=== PATIENT | female | born 1965 | race Two or more races ===

== ENCOUNTER 2020-08-30 11:02 | Outpatient (REF) | payer BC, SELFPAY | END 2020-08-30 11:03 | disposition home or self-care (01) | LOC: HO.LAB 11:02 | PROVIDERS: Visit Provider Internal Medicine | DX: Z20.828 Contact with and (suspected) exposure to other viral communicable diseases (principal) | CPT/HCPCS: U0003 ==

== ENCOUNTER 2020-09-30 08:48 | Outpatient (REF) | payer BC, SELFPAY | END 2020-09-30 08:49 | disposition home or self-care (01) | LOC: HO.LAB 08:48 | PROVIDERS: Visit Provider Internal Medicine | DX: Z20.828 Contact with and (suspected) exposure to other viral communicable diseases (principal) | CPT/HCPCS: C9803; U0003 ==

== ENCOUNTER 2020-10-07 08:03 | Outpatient (REF) | payer BC, SELFPAY ==
[2020-10-07 08:40] LABS: MANUAL DIFF FLAG NO
[2020-10-07 08:48] LABS: Eosinophils Absolute Auto 0.1 X10*3/uL (0.0-0.4); Eosinophils Percent Auto 1.3 % (0-4); Hematocrit 40.6 % (37-47); Hemoglobin 13.4 g/dl (12.0-16.0); Imm Gran Abs Auto 0.01 X10*3/uL (0.00-0.03); Imm Gran Pct Auto 0.2 % (0.0-0.4); Lymphocytes Absolute Auto 1.6 X10*3/uL (1.2-4.9); Lymphocytes Percent Auto 30.7 % (20-40); Mean Corpuscular Hemoglobin 28.3 pg (27.0-33.0); Mean Corpuscular Volume 85.7 fL (80-98); Mean Platelet Volume 10.7 fL (9.4-12.3); Monocytes Absolute Auto 0.3 X10*3/uL (0.1-1.2); Monocytes Percent Auto 5.3 % (2-11); Neutrophils Absolute Auto 3.3 X10*3/uL (2.0-8.3); Neutrophils Percent Auto 62.5 % (45-73); Platelet Count 248 X10*3/uL (160-400); Red Blood Count 4.74 X10*6/uL (4.20-5.50); Red Cell Distribution Width 12.4 % (11.0-16.0); White Blood Count 5.3 X10*3/uL (4.8-10.8)
[2020-10-07 09:08] LABS: Anion Gap 14 (12-20); Blood Urea Nitrogen 17 mg/dL (9-16); Carbon Dioxide 25 mmol/L (22-29); Chloride 106 mmol/L (96-108); Cholesterol 156 mg/dL; Estimated Glomerular Filt Rate > 60; Glucose Fasting 88 mg/dL (60-99); HDL Cholesterol 40 mg/dL; LDL Cholesterol Calculated 99 mg/dl; Sodium 140 mmol/L (135-145); Triglycerides 88 mg/dL
== END 2020-10-07 08:04 | disposition home or self-care (01) ==
LOC: HO.LAB 08:03
PROVIDERS: PCP Internal Medicine; Visit Provider Nurse Practitioner Family
DX: Z00.00 Encounter for general adult medical examination without abnormal findings (principal); Z13.220 Encounter for screening for lipoid disorders
CPT/HCPCS: 36415; 80048; 80061; 85025

== ENCOUNTER 2020-11-19 10:14 | Outpatient (REF) | payer BC, SELFPAY | END 2020-11-19 10:15 | disposition home or self-care (01) | LOC: HO.LAB 10:14 | PROVIDERS: Visit Provider Internal Medicine | DX: Z20.822 Contact with and (suspected) exposure to COVID-19 (principal) | CPT/HCPCS: 36415; C9803; U0003 ==

== ENCOUNTER 2021-01-29 08:42 | Outpatient (REF) | payer BC, SELFPAY ==
[2021-01-29 12:29] LABS: SARS COV2 PCR INHOUSE NEGATIVE (Negative)
== END 2021-01-29 08:43 | disposition home or self-care (01) ==
LOC: HO.LAB 08:42
PROVIDERS: Visit Provider Internal Medicine
DX: Z20.822 Contact with and (suspected) exposure to COVID-19 (principal)
CPT/HCPCS: C9803; U0003

== ENCOUNTER 2022-08-20 15:06 | Outpatient (REF) | payer OTHER, SELFPAY ==
[2022-08-20 15:56] LABS: Appearance Urine Clear; Color Urine Yellow; Glucose Urine UA Negative (Negative); Leukocyte Esterase Urine Trace (Negative); Nitrite Urine Negative (Negative); Specific Gravity - Urine 1.015 (1.005-1.025); UMIC TRIGGER UA YES; Urine Blood Large (3+) (Negative); Urine Ketones Negative (Negative); Urine Protein Negative (Neg-Trace)
[2022-08-20 15:59] LABS: Bacteria Urine None Seen (None Seen); Hyaline Casts Urine 0-2 /LPF (0-2); RBC Urine >20 /HPF (0-2); Squamous Epithelial Cell Urine 0-2 /HPF (0-2); WBC Urine 0-5 /HPF (0-5)
[2022-08-20 15:59] LABS: Anion Gap 14 (12-20); Blood Urea Nitrogen 20 mg/dL (9-16); Calcium 9.7 mg/dL (8.4-10.2); Carbon Dioxide 26 mmol/L (22-29); Chloride 105 mmol/L (96-108); Estimated Glomerular Filt Rate > 60; Potassium 4.1 mmol/L (3.3-5.1); Sodium 141 mmol/L (135-145)
== END 2022-08-20 15:07 | disposition home or self-care (01) ==
LOC: HO.LAB 15:06
PROVIDERS: Visit Provider Internal Medicine Nephrology
DX: I15.8 Other secondary hypertension (principal); R31.9 Hematuria, unspecified
CPT/HCPCS: 36415; 80051; 81001; 82310; 82565; 84520

== ENCOUNTER 2022-11-17 00:15 | Emergency (ER) | payer OTHER, SELFPAY ==
[2022-11-17] VITALS (8 sets, daily range): BP systolic 114–148; BP diastolic 80–90; PULSE 99–119; RESP 12–20; TEMP 36.6; O2SAT 96–100; BMI 27.6
--- NOTE | ~2022-11-17 | XR_ITS ---
EXAMINATION: XR CHEST CLINICAL INFORMATION: Syncope COMPARISON: None TECHNIQUE: Frontal view of the chest was obtained. FINDINGS: The lungs are well expanded. There is no focal consolidation, edema, or effusion. No pneumothorax. The cardiomediastinal silhouette is within normal limits. No acute osseous abnormality. XR/XR chest 1V IMPRESSION: No acute pulmonary disease.
--- NOTE | ~2022-11-17 | XR_ITS ---
EXAMINATION: XR ANKLE, RIGHT CLINICAL INFORMATION: Syncope. Twisted ankle. Swelling. COMPARISON: None TECHNIQUE: AP, lateral, and mortise views of the right ankle. FINDINGS: Obliquely oriented distal fibular fracture extending to the ankle mortise. Slight lateral displacement of the distal fragment. Medial widening of the ankle mortise. Small fracture at the tip of the medial malleolus. Lateral soft tissue swelling. XR/XR ankle RT min 3V IMPRESSION: Mildly displaced distal fibular fracture. Small fracture at the tip of the medial malleolus. Widening of the medial clear space of the ankle mortise.
--- NOTE | ~2022-11-17 | CT_ITS ---
EXAMINATION: CT ANGIOGRAM OF THE CHEST WITH AND WITHOUT CONTRAST (CT PULMONARY ANGIOGRAM FOR PE) CLINICAL INFORMATION: Reason for Exam covid+, syncope, elevated dimer COMPARISON: Chest radiograph from today TECHNIQUE: Prior to contrast administration, noncontrast localization images were obtained. Subsequently, multidetector volumetric imaging was performed from the thoracic inlet to below the diaphragms following the administration of 65 mL Omnipaque 350 intravenous contrast. No contrast reaction reported Sagittal, coronal, and MIP oblique sagittal reformatted images were obtained on the CT workstation, uploaded to PACS, and reviewed. This CT examination was performed using dose optimization techniques as appropriate, variously including the following: *Automated exposure control *Adjustment of mA and/or kV according to patient size (this includes techniques or standardized protocols for targeted exams where dose is matched to indication/reason for exam; i.e. extremities or head) *Use of iterative reconstruction technique Total exam dose-length product 246 mGy-cm FINDINGS: QUALITY OF STUDY/CONTRAST BOLUS: Satisfactory. PULMONARY ARTERIES: No central or segmental pulmonary emboli. THORACIC AORTA: No aneurysm or dissection. LUNG: No focal consolidation, nodules or masses. The central airways are patent. PLEURA: No pleural effusion or pneumothorax. MEDIASTINUM: Normal heart size. No pericardial effusion. No hilar or mediastinal lymphadenopathy. No evidence of septal bowing or right heart strain. CORONARY ARTERY CALCIFICATION: None visualized on this study. CHEST WALL/AXILLA: No axillary or internal mammary lymphadenopathy. OSSEOUS STRUCTURES: No acute or suspicious osseous abnormality. Degenerative changes noted in the spine. UPPER ABDOMEN: Unremarkable. No reflux of contrast into the hepatic veins to suggest elevated right heart pressures. CT/CT angio chest PE protocol IMPRESSION: No pulmonary embolism or other acute intrathoracic abnormality. VTE: negative
--- NOTE | 2022-11-17 00:25 | ECG_ITS ---
Test Reason : SNYCOPE Blood Pressure : / mmHG Vent. Rate : 085 BPM Atrial Rate : 085 BPM P-R Int : 148 ms QRS Dur : 086 ms QT Int : 378 ms P-R-T Axes : 038 -15 -06 degrees QTc Int : 449 ms Normal sinus rhythm Moderate voltage criteria for LVH, may be normal variant ( R in aVL , Boom product ) Borderline ECG No previous ECGs available Referred By: Generic ED Physician Electronically Signed By:ABBEY ZEE MD
[2022-11-17 01:22] LABS: Anion Gap 15 (12-20); Blood Urea Nitrogen 18 mg/dL (9-16); Calcium 8.8 mg/dL (8.4-10.2); Carbon Dioxide 24 mmol/L (22-29); Chloride 105 mmol/L (96-108); Creatinine Clr Calc Pharmacy 65.9; Estimated Glomerular Filt Rate > 60; Glucose Random 113 mg/dL (60-115); Potassium 4.1 mmol/L (3.3-5.1); Sodium 140 mmol/L (135-145)
[2022-11-17 01:30] LABS: Troponin-I High Sensitivity < 3.5 ng/L (<3.5-17.0)
[2022-11-17 01:33] LABS: Basophils Percent Auto 0.3 % (0-2); Eosinophils Percent Auto 0.6 % (0-4); Hemoglobin 13.1 g/dl (12.0-16.0); Imm Gran Abs Auto 0.02 X10*3/uL (0.00-0.03); Imm Gran Pct Auto 0.3 % (0.0-0.4); Lymphocytes Absolute Auto 1.3 X10*3/uL (1.2-4.9); Lymphocytes Percent Auto 18.2 % (20-40); Mean Corpuscular HGB Conc 34.5 g/dl (31.0-35.0); Mean Corpuscular Hemoglobin 28.8 pg (27.0-33.0); Mean Corpuscular Volume 83.5 fL (80.0-98.0); Mean Platelet Volume 9.9 fL (9.4-12.3); Monocytes Absolute Auto 0.5 X10*3/uL (0.1-1.2); Monocytes Percent Auto 7.1 % (2-11); Neutrophils Percent Auto 73.5 % (45-73); Platelet Count 209 X10*3/uL (160-400); Red Blood Count 4.55 X10*6/uL (4.20-5.50); Red Cell Distribution Width 12.3 % (11.0-16.0); White Blood Count 6.9 X10*3/uL (4.8-10.8)
[2022-11-17 01:36] LABS: MANUAL DIFF FLAG NO
[2022-11-17 01:42] LABS: Influenza A PCR NEGATIVE (Negative); Influenza B PCR NEGATIVE (Negative); Resp Syncy Virus RNA Qual PCR NEGATIVE (Negative); SARS COV2 PCR INHOUSE POSITIVE (Negative)
--- NOTE | 2022-11-17 02:04 | ED_ITS ---
HPI - General Adult General Chief complaint: Syncope Stated complaint: ankle injury, fall at home Time Seen by Provider: 11/17/22 01:43 Source: patient Mode of arrival: ambulatory Limitations: no limitations History of Present Illness HPI narrative: Patient comes to the emergency room complaining dizziness, syncopal episode and ankle injury. Patient states that she was already sleeping, patient heard her child coughing violently, she got worked up, anxious, stood up from bed very quickly to look for medications. Patient started feeling very lightheaded, patient passed out. When she woke up on the floor, patient had ankle pain. Patient states that she has been coughing quite a bit lately in the last couple of days. Related Data Previous Rx's Medication Instructions Recorded ibuprofen 600 mg tablet 600 mg PO TID PRN fever or pain 11/17/22 #20 tabs nirmatrelvir 300 mg (150 mg See Rx Instructions PO .COMPLEX 11/17/22 x2)-ritonavir 100 mg tablet,dose #30 ea pack(EUA) (Paxlovid) tramadol 50 mg tablet 50 mg PO Q8H PRN pain #7 tabs 11/17/22 Allergies Allergy/AdvReac Type Severity Reaction Status Date / Time No Known Allergies Allergy Verified 09/25/20 07:34 [No Known Allergies*] Review of Systems Review of Systems: Constitutional : No Weight loss, No Fever, No Chills, No Night Sweats, No Fatigue, No Malaise ENT/Mouth : No Hearing loss, No Ear Pain, No Nasal Congestion, No Sinus Pain, No Hoarseness, No sore throat, No Rhinorrhea, No Swallowing Difficulty Eyes: No Eye Pain, No Swelling, No Redness, No Foreign Body, No Discharge, No Vision Changes Cardiovascular : No Chest Pain, No SOB, No Dyspnea on Exertion, No Orthopnea, No Edema, No Palpitations Respiratory : No Cough, No Sputum, No Wheezing, No Smoke Exposure, No Dyspnea Gastrointestinal : No Nausea, No Vomiting, No Diarrhea, No Constipation, No abdominal Pain, No Hematochezia, No Melena Genitourinary : no irregular bleeding, No Dysuria, No Urinary Frequency, No Hematuria, No Urinary Incontinence, No Urgency, No Flank Pain, No Urinary Flow Changes, No Hesitancy Musculoskeletal : Complaining of right ankle pain, No Myalgias, No Joint Swelling Skin : No Skin Lesions, No rash Neuro : No Weakness, No Numbness, No Paresthesias, 1 episode of dizziness /lightheadedness, No Dizziness, No Headache Psych : Anxiety, depression SI or HI Heme/Lymph: No Bruising, No Bleeding,No Lymphadenopathy Endocrine : No Polyuria, No Polydipsia, No Temperature Intolerance [facility] Past Medical History Medical History Physical exam Surgical History History of section Family History Family History (Updated 09/25/20 @ 07:35 by Lucille Ruvalcaba [facility]) Father Lung cancer Diabetes Hypertension Mother Hypertension Social History Social History Alcohol intake: never Smoked in Last 30 Days: No Use of substances other than those prescribed or required for medical reasons: No Advance Directives: No Patient : No Physical Exam ED Vital Signs: Vital Signs - 24 hr 11/17/22 00:19 11/17/22 02:05 11/17/22 02:03 Temperature 97.8 F 97.9 F Pulse Rate 99 103 H 102 H Respiratory Rate 20 12 Blood Pressure 114/81 143/85 H 148/80 H Pulse Oximetry 100 96 Oxygen Delivery Method Room Air Room Air 11/17/22 02:08 11/17/22 02:19 11/17/22 02:03 Temperature Pulse Rate 102 H 118 H Respiratory Rate Blood Pressure 148/88 H 122/85 Pulse Oximetry 99 Oxygen Delivery Method Room Air 11/17/22 04:52 11/17/22 04:58 11/17/22 04:59 Temperature 97.9 F Pulse Rate 102 H 105 H 119 H Respiratory Rate 16 Blood Pressure 143/90 H 146/88 H 139/88 Pulse Oximetry 96 Oxygen Delivery Method Room Air BMI result Body Mass Index 27.6 Const Other: Appearance: Alert. Oriented X3. No acute distress. Eyes: Pupils equal, round and reactive to light. ENT: Pharynx normal. Neck: Normal inspection. Neck supple. No lymph nodes noted. No crepitus CVS: Normal heart rate and rhythm. Pulses normal. Normal S1 and S2 Respiratory: No respiratory distress. Breath sounds normal. No Wheezing. No rales Abdomen: Soft and nontender. No rigidity. No distention. Skin: Skin warm and dry. Normal skin color. Normal skin turgor. Extremities: Patient's ankle on the right side is swelling, tenderness to palpation over the lateral malleolus Neuro: Oriented X 3. No motor deficit. No sensory deficit. Moving all extremities. No slurred speech. CN 2 through 12 grossly intact Psych: calm, cooperative, normal affect Course Course Course Narrative: -patient tested positive for COVID-19. -patient passed out from sitting up quickly, being anxious. Is likely that patient passed out from vasovagal syncope. Patient's orthostatic vitals are positive, patient receiving IV fluids. However, patient does have COVID I will go ahead and order a D-dimer -troponin negative, D-dimer pending. Discussed with patient that the timer is positive, she will get a CTA, agrees with plan -patient will get short posterior splint with stirrup and crutches -D-dimer positive. We will go ahead and do a CTA to rule out pulmonary embolism -CTA is negative for pulmonary embolism. -patient's orthostatic vitals were positive, patient given IV fluids, orthostatics were checked, no longer positive. Medications Administered Discontinued Medications Generic Name Dose Route Start Last Admin Trade Name Freq PRN Reason Stop Dose Admin Sodium Chloride 1,000 mls @ 999 mls/hr 11/17/22 02:20 11/17/22 02:51 Ns IVCONT 11/17/22 03:20 999 mls/hr .Q1H1M ONE Administration Medical Decision Making Medical Decision Making [facility] Narrative: Patient's troponin was slightly elevated at 261, CTA was negative for pulmonary embolism. Troponin negative, EKG shows normal sinus rhythm, no ST segment depression or elevation, no T-wave inversion, QTC 449 Differential Diagnosis Differential Diagnoses: The differential diagnosis associated with the presentation includes (Pulmonary embolism, ACS, orthostatic hypotension, vasovagal syncope) Lab Data [facility] Lab Attestation statement: I reviewed the patient's lab results. 11/17/22 01:22 11/17/22 00:59 Labs: Lab Results 11/17/22 11/17/22 11/17/22 Range/Units 00:59 00:59 00:59 WBC (4.8-10.8) X10*3/uL RBC (4.20-5.50) X10*6/uL Hgb (12.0-16.0) g/dl Hct (37.0-47.0) % MCV (80.0-98.0) fL MCH (27.0-33.0) pg MCHC (31.0-35.0) g/dl RDW (11.0-16.0) % Plt Count (160-400) X10*3/uL MPV (9.4-12.3) fL Immature Gran % (Auto) (0.0-0.4) % Neut % (Auto) (45-73) % Lymph % (Auto) (20-40) % Pierce % (Auto) (2-11) % Eos % (Auto) (0-4) % Baso % (Auto) (0-2) % Lymph # (Auto) (1.2-4.9) X10*3/uL Pierce # (Auto) (0.1-1.2) X10*3/uL Eos # (Auto) (0.0-0.4) X10*3/uL Baso # (Auto) (0.0-0.2) X10*3/uL Abs Immat Gran (auto) (0.00-0.03) X10*3/uL Absolute Neuts (auto) (2.0-8.3) x10*3/uL Absolute Nucleated RBC (0.0-0.012) X10*3/uL Nucleated RBC % (auto) (0.0-0.2) /100WBC D-Dimer High Sensitivty NG/ML Sodium 140 (135-145) mmol/L Potassium 4.1 (3.3-5.1) mmol/L Chloride 105 (96-108) mmol/L Carbon Dioxide 24 (22-29) mmol/L Anion Gap 15 (12-20) BUN 18 H (9-16) mg/dL Creatinine 0.82 (0.5-1.4) mg/dL Estim Creat Clear Calc 65.9 Estimated GFR > 60 Random Glucose 113 (60-115) mg/dL Calcium 8.8 D (8.4-10.2) mg/dL Troponin I High Sens < 3.5 (<3.5-17.0) ng/L Urine Color Urine Appearance Urine pH (5.0-9.0) Ur Specific [place] (1.005-1.025) Urine Protein (Neg-Trace) mg/dL Urine Glucose (UA) (Negative) mg/dL Urine Ketones (Negative) mg/dL Urine Blood (Negative) Urine Nitrite (Negative) Ur Leukocyte Esterase (Negative) Urine RBC (0-2) /HPF Urine WBC (0-5) /HPF Ur Squamous Epith Cells (0-2) /HPF Urine Bacteria (None Seen) Hyaline Casts (0-2) /LPF Influenza Type A (PCR) NEGATIVE (Negative) Influenza Type B (PCR) NEGATIVE (Negative) RSV RNA Qual (PCR) NEGATIVE (Negative) SARS-CoV-2 RNA (RT-PCR) POSITIVE A (Negative) 11/17/22 11/17/22 11/17/22 Range/Units 01:22 01:59 04:47 WBC 6.9 (4.8-10.8) X10*3/uL RBC 4.55 (4.20-5.50) X10*6/uL Hgb 13.1 (12.0-16.0) g/dl Hct 38.0 (37.0-47.0) % MCV 83.5 (80.0-98.0) fL MCH 28.8 (27.0-33.0) pg MCHC 34.5 (31.0-35.0) g/dl RDW 12.3 (11.0-16.0) % Plt Count 209 (160-400) X10*3/uL MPV 9.9 (9.4-12.3) fL Immature Gran % (Auto) 0.3 (0.0-0.4) % Neut % (Auto) 73.5 H (45-73) % Lymph % (Auto) 18.2 L (20-40) % Pierce % (Auto) 7.1 (2-11) % Eos % (Auto) 0.6 (0-4) % Baso % (Auto) 0.3 (0-2) % Lymph # (Auto) 1.3 (1.2-4.9) X10*3/uL Pierce # (Auto) 0.5 (0.1-1.2) X10*3/uL Eos # (Auto) 0.0 (0.0-0.4) X10*3/uL Baso # (Auto) 0.0 (0.0-0.2) X10*3/uL Abs Immat Gran (auto) 0.02 (0.00-0.03) X10*3/uL Absolute Neuts (auto) 5.0 (2.0-8.3) x10*3/uL Absolute Nucleated RBC 0.000 (0.0-0.012) X10*3/uL Nucleated RBC % (auto) 0.0 (0.0-0.2) /100WBC D-Dimer High Sensitivty 261 NG/ML Sodium (135-145) mmol/L Potassium (3.3-5.1) mmol/L Chloride (96-108) mmol/L Carbon Dioxide (22-29) mmol/L Anion Gap (12-20) BUN (9-16) mg/dL Creatinine (0.5-1.4) mg/dL Estim Creat Clear Calc Estimated GFR Random Glucose (60-115) mg/dL Calcium (8.4-10.2) mg/dL Troponin I High Sens (<3.5-17.0) ng/L Urine Color Yellow Urine Appearance Clear Urine pH 7.0 (5.0-9.0) Ur Specific [place] 1.025 (1.005-1.025) Urine Protein Negative (Neg-Trace) mg/dL Urine Glucose (UA) Negative (Negative) mg/dL Urine Ketones Negative (Negative) mg/dL Urine Blood Moderate (2+) H (Negative) Urine Nitrite Negative (Negative) Ur Leukocyte Esterase Trace H (Negative) Urine RBC 11-20 H (0-2) /HPF Urine WBC 0-5 (0-5) /HPF Ur Squamous Epith Cells 0-2 (0-2) /HPF Urine Bacteria None Seen (None Seen) Hyaline Casts 0-2 (0-2) /LPF Influenza Type A (PCR) (Negative) Influenza Type B (PCR) (Negative) RSV RNA Qual (PCR) (Negative) SARS-CoV-2 RNA (RT-PCR) (Negative) Independent Interpretation I performed an independent interpretation of an: Plain X-Ray (X-ray of the ankle interpretation: Tibial fracture, mildly displaced) and CT Scan (Interpretation of CTA, no occlusions, no PE visualized) Radiology Impression Discussion of test interpretation with radiology: I have reviewed the radiologist's reading. Radiologist Impression: FINDINGS: QUALITY OF STUDY/CONTRAST BOLUS: Satisfactory. PULMONARY ARTERIES: No central or segmental pulmonary emboli.? THORACIC AORTA: No aneurysm or dissection. LUNG: No focal consolidation, nodules or masses. The central airways are patent. PLEURA: No pleural effusion or pneumothorax. MEDIASTINUM: Normal heart size.? No pericardial effusion.? No hilar or mediastinal lymphadenopathy.? No evidence of septal bowing or right heart strain. CORONARY ARTERY CALCIFICATION: None visualized on this study. CHEST WALL/AXILLA: No axillary or internal mammary lymphadenopathy. OSSEOUS STRUCTURES: No acute or suspicious osseous abnormality. Degenerative changes noted in the spine. UPPER ABDOMEN: Unremarkable.? No reflux of contrast into the hepatic veins to suggest elevated right heart pressures. CT/CT angio chest PE protocol IMPRESSION: No pulmonary embolism or other acute intrathoracic abnormality. ? VTE: negative Mildly displaced distal fibular fracture. Small fracture at the tip of the medial malleolus. Widening of the medial clear space of the ankle mortise. ? Discharge Plan Discharge Clinical Impression: Syncope, COVID-19, Closed fibular fracture, Syncope due to orthostatic hypote nsion Patient Disposition: Home, Self-Care Instructions: Ankle Fracture (ED), Syncope (ED), COVID-19 (Coronavirus Disease 2019) (ED) Additional Instructions: Please follow-up with your primary care physician and Orthopedics tomorrow. If you have any worsening or new symptoms, please return to the emergency room or call 911 Prescriptions: New Paxlovid (EUA) 300 mg (150 mg x 2)-100 mg tablets,dose pack See Rx Instructions .ROUTE .COMPLEX Qty: 30 0RF Rx Instructions: take TWO 150 mg tablets of nirmatrelvir with ONE 100 mg tablet of ritonavir twice daily for 5 days tramadol 50 mg tablet 50 mg PO Q8H PRN (Reason: pain) Qty: 7 0RF ibuprofen 600 mg tablet 600 mg PO TID PRN (Reason: fever or pain) Qty: 20 0RF Referrals: Edelmira Singh PA-C [Physician Yarn Mercerizer Operator] - 2 days Stand Alone Forms: Work/School Release
[2022-11-17 02:14] LABS: D Dimer High Sensitivity 261 NG/ML
[2022-11-17] MEDS: 0.9 % Sodium Chloride 1,000 ML 999 ML IVCONT (02:51)
[2022-11-17 04:56] LABS: Appearance Urine Clear; Color Urine Yellow; Glucose Urine UA Negative (Negative); Leukocyte Esterase Urine Trace (Negative); Nitrite Urine Negative (Negative); Specific Gravity - Urine 1.025 (1.005-1.025); UMIC TRIGGER UACC YES; Urine Blood Moderate (2+) (Negative); Urine Ketones Negative (Negative); Urine Protein Negative (Neg-Trace)
[2022-11-17 05:00] LABS: Bacteria Urine None Seen (None Seen); Hyaline Casts Urine 0-2 /LPF (0-2); Squamous Epithelial Cell Urine 0-2 /HPF (0-2); WBC Urine 0-5 /HPF (0-5)
--- NOTE | 2022-11-17 05:01 | PC.NURSE ---
PT pivot to bedside commode. Urine sample obtained and sent to lab. Orthostatic vitals obtained and documented as ordered, provider notified.
== END 2022-11-17 05:29 | disposition home or self-care (01) ==
PROVIDERS: Emergency Provider Emergency Medicine; PCP Internal Medicine
DX: S82.401A Unspecified fracture of shaft of right fibula, initial encounter for closed fracture (principal); U07.1 COVID-19; R55 Syncope and collapse; R07.81 Pleurodynia; W01.0XXA Fall on same level from slipping, tripping and stumbling without subsequent striking against object, initial encounter; Y93.9 Activity, unspecified; Y92.9 Unspecified place or not applicable; Y99.9 Unspecified external cause status; Z79.899 Other long term (current) drug therapy
CPT/HCPCS: 0241U; 29515; 36415; 71045; 71275; 73610; 80048; 81001; 84484; 85025; 85379; 93005; 99285

== ENCOUNTER 2022-11-26 06:06 | Outpatient (REF) | payer OTHER, SELFPAY ==
--- NOTE | ~2022-11-26 | XR_ITS ---
EXAMINATION: XR ankle RT min 3V CLINICAL INFORMATION: Reason for Exam M25.571 - Pain in right ankle and joints of right foot COMPARISON: Ankle radiographs 11/17/2022 TECHNIQUE: AP, lateral, and oblique views of the ankle FINDINGS: * Redemonstration of a mildly displaced distal fibular fracture and a displaced fracture of the tip of the medial malleolus, with increasing widening of the medial clear space to 0.9 cm suggesting ligamentous injury, previously 0.5 cm. No keerthi bridging bony callus formation. * Small tibiotalar joint effusion. * Persistent soft tissue swelling, decreased from prior.
== END 2022-11-26 06:07 | disposition home or self-care (01) ==
LOC: HO.HOSX 06:06
PROVIDERS: Visit Provider Physician Assistant
DX: S82.831A Other fracture of upper and lower end of right fibula, initial encounter for closed fracture (principal)
CPT/HCPCS: 73610

== ENCOUNTER 2022-12-02 08:18 | Day surgery (SDC) | payer OTHER, SELFPAY ==
[2022-12-02] VITALS (12 sets, daily range): BP systolic 136–170; BP diastolic 73–93; PULSE 68–92; RESP 14–18; TEMP 36.7–37.1; O2SAT 99–100; BMI 28.9
--- NOTE | ~2022-12-02 | FL_ITS ---
EXAMINATION: XR FLUOROSCOPY WITH IMAGES CLINICAL INFORMATION: Fracture right ankle. COMPARISON: None. TECHNIQUE: Fluoroscopy Supervised By: Dr. Brandon Ellison. Fluoroscopy Time: 0.2 minutes. Cumulative Dose: 0.802 mGy. DAP: 0.0139 Gycm2. Images: 3. FINDINGS: 3 digital views of the right ankle reveal and lateral metallic plate and screws stabilizing old healed fracture. The long screw stabilizing the tibia and fibula has been removed. The ankle mortise is satisfactory alignment. No abnormal soft tissue swelling seen. FL/FL guidance in OR IMPRESSION: 1. Status post removal of long screw stabilizing the tibia and fibula. 2. There is lateral metallic plate and screws stabilizing old healed fracture. Stabilized lateral fibular fracture with metallic plate and screws. A long screw traversing the distal tibia and fibula has been removed. There is medial distal tibial metallic plate noted.
[2022-12-02] MEDS: Lactated Ringers 1,000 ML 50 ML IVCONT (08:54)
--- NOTE | 2022-12-02 08:58 | HO.ANESPROP2 ---
HPI - Anesthesia Eval Consult details Narrative: 56 F for right ankle ORIF PMFSH Active Problems Active Problems: All Active Problems (Updated 12/02/22 @ 08:30 by Marla Ruggiero, RN) COVID-19 (Acute) Fracture of distal end of right fibula (Acute) Physical exam (Acute) Past Medical History Medical History Kidney disease Physical exam Family History Family History (Updated 09/25/20 @ 07:35 by Lucille Ruvalcaba [facility]) Father Lung cancer Diabetes Hypertension Mother Hypertension Family history of problems with anesthesia: No Surgical History Surgical History (Updated 12/02/22 @ 08:31 by Marla Ruggiero, KAMINI) History of section Hx of colonoscopy History of Problems with Anesthesia: No Social History Social History (Updated 11/26/22 @ 10:37 by Phoebe Mao [facility]) Alcohol intake: never Patient Tobacco Use Status: Never used Tobacco Use of substances other than those prescribed or required for medical reasons: No Are you DNR?: No Advance Directives: No Advance Directives Information Provided: Yes Current occupational status: employed 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, 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 Meds Allergies Allergy/AdvReac Type Severity Reaction Status Date / Time No Known Allergies Allergy Verified 12/02/22 08:31 [No Known Allergies*] Active Medications: Current Medications Lactated Ringer's (Lr) 1,000 mls @ 50 mls/hr IVCONT .Q20H GAVIN Last Admin: 12/02/22 08:54 Dose: 50 mls/hr Exam Exam Date and Time: December 02, 2022 0858 Height,Weight and Vital Signs: Height 5 ft 1 in Weight 69.4 kg Last Vital Signs Temp 98.7 F 12/02/22 08:38 Pulse 92 12/02/22 08:38 Resp 15 12/02/22 08:38 BP 147/89 H 12/02/22 08:38 Pulse Ox 99 12/02/22 08:38 O2 Del Method 12/02/22 08:38 Airway Mallampati Class: III TM Dist: >3cm Neck ROM: Full Loose/Missing/Broken Teeth: Yes Heart: S1,S2 Lungs: b/l breath sounds Assessment and Plan Assessment Anesthesia Assessment: Anesthesia Plan Discussed and Chart Reviewed Final Anesthetic Review Family History of Problems with Anesthesia: No History of Problems with Anesthesia: No NPO: Yes ASA Class: II Final Preanesthetic Review: Meds/Allgs Chart Reviewed, Consent Obtained/Reviewed and Anes Risks/Benef Reviewed Patient Risk: Intermediate Procedure Risk: Intermediate Anesthetic Plan Anesthetic Plan: GA and Regional Block Disposition: Standard PACU
--- NOTE | 2022-12-02 12:54 | P.BOP_ITS ---
Brief Operative Note Date of Service: 12/02/22 Pre-op diagnosis: Right fibula fracture with syndesmosis disruption Post-op diagnosis: same Procedure: ORIF right fibula ORIF right syndesmosis Implants: Styker lateral locking plate Arthrex syndesmosis tightrope Surgeon: Brandon Ellison MD Anesthesia: GETA and regional Was an Professor Of Theater used for this Procedure?: Yes Professor Of Theater: Edelmira Singh Estimated blood loss (mL): 5 Tourniquet time (min): 35 IV fluids (mL): 800 Pathology: none sent Condition: stable Disposition: PACU
[2022-12-02] MEDS: fentaNYL citrate/PF 100 MCG/2 ML VIAL 25 MCG IVPUSH ×2 (13:30→13:40)
[2022-12-02] MEDS: oxyCODONE HCl Immed Release 5 MG TABLET PO (13:55)
[2022-12-02] MEDS: Acetaminophen 325 MG TABLET 650 MG PO (13:56)
--- NOTE | 2022-12-02 15:53 | PC.NURSE ---
PATIENT ARRIVED WITH HER OWN CRUTCHES.
--- NOTE | 2022-12-07 11:37 | P.OP_ITS ---
Operative Note Operative Note Date of Service: 12/02/22 Narrative: Date of Service: 12/02/22 Pre-op diagnosis: Right fibula fracture with syndesmosis disruption Post-op diagnosis: same Procedure: ORIF right fibula ORIF right syndesmosis Implants: Styker lateral locking plate Arthrex syndesmosis tightrope Surgeon: Brandon Ellison MD Anesthesia: GETA and regional Was an Wood Fence Installer used for this Procedure?: Yes Wood Fence Installer: Edelmira Singh Estimated blood loss (mL): 5 Tourniquet time (min): 35 IV fluids (mL): 800 Pathology: none sent Condition: stable Disposition: PACU Procedure in detail: Patient was brought to the operating room and placed supine on the operative table. All bony prominences were well padded and a time-out was called to identify proper site proper procedure proper surgeon. IV antibiotics per weight were administered. I began by exsanguinating limb is slightly tourniquet to 300 mm Hg. I then made a standard posterolateral incision over the fibula. Full- thickness flaps were taken down to the fibular shaft and distal fibula. The fracture was identified and cleaned with a combination of curette, rongeur and irrigation. A lobster claw was used to provisionally reduce the fracture and a 6 hole distal fibular locking plate was applied using standard AO technique. Biplanar fluoroscopy was used to confirm hardware position and fracture reduction. Once I was satisfied that both of these were acceptable I irrigated copiously and turned my attention to the syndesmosis. This was tested using external rotation test and was found to be unstable. Therefore I drilled for a syndesmosis tightrope via the lateral plate in an inferior to superior angle. A tightrope was then placed and a yeny incision made medially and the syndesmosis was reduced with a c-clamp while the tightrope was tightened. Final biplanar radiogrtpahs were obtained. All instrumentation was removed and copious irrigation was performed. Absorbable suture and daniela were used for closure and the patient was placed into sterile dressings and a well-padded posterior splint. Tourniquet was let down and the patient was extubated brought to recovery room in stable condition there were no known complications.
== END 2022-12-02 15:54 | disposition home or self-care (01) ==
LOC: HO.SSS 08:19
PROVIDERS: PCP Internal Medicine; Visit Provider Orthopaedic Surgery
PROC: (CPT 27792; principal; 2022-12-02 10:40)
DX: S82.831A Other fracture of upper and lower end of right fibula, initial encounter for closed fracture (principal); W18.39XA Other fall on same level, initial encounter; Y93.89 Activity, other specified; Y92.003 Bedroom of unspecified non-institutional (private) residence as the place of occurrence of the external cause; Y99.8 Other external cause status; R42 Dizziness and giddiness
CPT/HCPCS: 27792; 27829; C1713; J0690; J1100; J1170; J2250; J2405; J2795; J3010

== ENCOUNTER → 2022-12-04 12:58 | Outpatient (BNVA) | payer OTHER, SELFPAY | PROVIDERS: PCP Internal Medicine; Visit Provider Physician Assistant | DX: S82.831D Other fracture of upper and lower end of right fibula, subsequent encounter for closed fracture with routine healing (principal) | CPT/HCPCS: 29405 ==

== ENCOUNTER → 2022-12-10 09:06 | Outpatient (BNVA) | payer OTHER, SELFPAY | PROVIDERS: PCP Internal Medicine; Visit Provider Physician Assistant | DX: Z13.89 Encounter for screening for other disorder (principal) ==

== ENCOUNTER 2022-12-17 11:01 | Outpatient (REF) | payer OTHER, SELFPAY ==
--- NOTE | ~2022-12-17 | XR_ITS ---
EXAMINATION: XR ANKLE, RIGHT CLINICAL INFORMATION: Pain. COMPARISON: Radiograph of the right ankle 11/26/2022. TECHNIQUE: AP, lateral, and mortise views of the right ankle. FINDINGS: Interval placement of orthopedic fixation hardware across fractures involving the medial and lateral malleoli with improved near anatomic alignment. Specifically, there is a lateral fixation plate with multiple traversing screws across the distal fibula, and an obliquely oriented small surgical plate/pin along the medial malleolus. Surgical skin daniela are noted in the medial and lateral compartments of the ankle. There is diffuse soft tissue swelling. No interval injuries. No evidence of hardware failure. XR/XR ankle RT min 3V IMPRESSION: Interval placement of orthopedic fixation hardware across fractures involving the medial and lateral malleoli with improved near anatomic alignment. No evidence of hardware failure. There is diffuse nonspecific soft tissue swelling, likely posttraumatic and postoperative. Recommend clinical correlation with signs of infection.
== END 2022-12-17 11:02 | disposition home or self-care (01) ==
LOC: HO.HOSX 11:01
PROVIDERS: Visit Provider Physician Assistant
DX: S82.831D Other fracture of upper and lower end of right fibula, subsequent encounter for closed fracture with routine healing (principal)
CPT/HCPCS: 29405; 73610

== ENCOUNTER 2023-01-15 09:51 | Outpatient (REF) | payer OTHER, SELFPAY ==
--- NOTE | ~2023-01-15 | XR_ITS ---
EXAMINATION: XR ANKLE, RIGHT CLINICAL INFORMATION: Pain COMPARISON: Ankle radiographs 12/17/2022 TECHNIQUE: AP, lateral, and mortise views of the right ankle. FINDINGS: Status post open reduction internal fixation of the ankle fixating a distal fibular fracture with decreased conspicuity of the fracture margins suggesting interval healing. Redemonstration of an avulsion fracture of the medial malleolus in unchanged alignment. Interval decrease in soft tissue swelling with interval removal of the previously seen soft tissue surgical daniela. No new acute fracture or dislocation. Ankle mortise is congruent. Small tibiotalar joint effusion similar to prior. XR/XR ankle RT min 3V IMPRESSION: Status post open reduction internal fixation of the ankle fixating a distal fibular fracture with decreased conspicuity of the fracture margins suggesting interval healing. Redemonstration of an avulsion fracture of the medial malleolus in unchanged alignment. Small tibiotalar joint effusion similar to prior. Decreased soft tissue swelling.
== END 2023-01-15 09:52 | disposition home or self-care (01) ==
LOC: HO.HOSX 09:51
PROVIDERS: Visit Provider Physician Assistant
DX: S82.831D Other fracture of upper and lower end of right fibula, subsequent encounter for closed fracture with routine healing (principal)
CPT/HCPCS: 73610

== ENCOUNTER 2023-02-26 07:10 | Outpatient (REF) | payer OTHER, SELFPAY ==
--- NOTE | ~2023-02-26 | XR_ITS ---
EXAMINATION: XR ANKLE, RIGHT CLINICAL INFORMATION: Pain COMPARISON: 01/15/2023 TECHNIQUE: AP, lateral, and mortise views of the right ankle. FINDINGS: Lateral plate and screw fixation hardware in place along the distal fibula. Endobutton along the medial malleolus. Fragmented appearance at the tip of the medial malleolus is unchanged. Alignment along the ankle mortise is congruent. Mild sequential soft tissue swelling. Disuse osteopenia. No acute fractures are seen. XR/XR ankle RT min 3V IMPRESSION: Fixation hardware at the distal fibula with appropriate alignment. No acute fractures are seen.
== END 2023-02-26 07:11 | disposition home or self-care (01) ==
LOC: HO.HOSX 07:10
PROVIDERS: Visit Provider Physician Assistant
DX: S82.831A Other fracture of upper and lower end of right fibula, initial encounter for closed fracture (principal)
CPT/HCPCS: 73610

== ENCOUNTER 2023-03-12 14:00 | Outpatient (RCR) | payer OTHER, SELFPAY ==
--- NOTE | 2023-01-26 11:13 | MHC.PT.EP ---
[facility] [place] [facility] [place] [facility] [place] Office [address] Adia Huang [address] [phone] F: [phone] F: [phone] F: [phone] F: [phone] Physical Therapy Plan of Care Date of Evaluation: Date of Surgery: Diagnosis: ORIF R distal fib - Assessment: Patient is a 57 year old R handed female who presents with s/s consistent with fracture of distal end of R fib, ORIF. 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 She is currently out of work. Patient past medical history is unremarkable. Current impairments include pain, posture, ROM, strength, balance, swelling, activity tolerance and functional mobility. Functional limitations include decreased ability to walk, stand, negotiate stairs, work, jog, squat, and do most weight bearing activities. Patient is motivated with good rehab potential. Skilled PT will address impairments and functional limitations in order to achieve goals. Frequency and Duration: The patient will be seen 2x/week for 5 weeks Short Term Goals: I With HEP -2 weeks AROM PF 50, DF 5, Inv 34, Ev 10 - 3 weeks Strength 4/5 grossly -3 weeks Credit Specialist Goals: restore normal gait mechanics - 5 weeks SLB > 30 seconds - 5 weeks Strength 4+/5 - 5 weeks LEFS 64/80 - 5 weeks back to work pain free - 5 weeks Treatment Plan: Modalities to reduce pain, spasms and effusion. Manual therapy to restore motion and function. Therapeutic exercise to improve strength and flexibility. Neuromuscular re-education for posture and balance. Therapeutic activities to return to functional activities of daily living. Electronically signed by: Mukund Cornell, PT Please sign and return to therapist. Thank you for your referral.
--- NOTE | 2023-04-13 07:26 | MHC.PT.DC ---
[facility] [place] [facility] [place] [facility] [place] Office [address] Adia Huang [address] [phone] F: [phone] F: [phone] F: [phone] F: [phone] Physical Therapy Discharge Report Diagnosis: ORIF R distal fib - Date of Surgery: Date of Evaluation: 01/26/23 Date of Discharge: 03/21/23 Treatments to Date: 7 Cancellations to Date: No Shows to Date: Discharge Status: Improved Function Independent with HEP Discharge Summary: 03/12/23: pt progressing well out of boot. good tolerance today. swelling still present. pain minimal. educated in progression outside of clinic. she will attempt to d/c to HEP at this time but we will keep her open 1 month. LEFS 65/80. I with HEP. Strength 4+/5. back to work with minimal pain. 03/05/23: pt out of boot. still with swelling. overall feeling better. good tolerance to standing/weight bearing in shoe. to continue at home for 1 week. then return and d/c to HEP at that time. starting back to work next week. 02/23; Pt sees on 02/26. Pt fatigued after exs. Pt ankle swollen. Decreased ROM. 02/17/23: pt progressing will with strength and stairs. no adverse reactions. swelling is still present but improving. 02/12/23: pt with no new complaints. ROM improving. swelling still present but being managed. continue to progress as tolerated. 02/03/23: pt is progressing well, increased activity with no increase in swelling though swelling is still present. i will continue to encourage her to elevate and ice outside of PT as well. 02/01/23: pt with improved ROM, improved scrunching. continued to educate and encourage on use of CP. 01/29/23: pt has been doing HEP. added ROM And hip strength today, no adverse reactions. continue to progress as tolerated. Patient is a 57 year old R handed female who presents with s/s consistent with fracture of distal end of R fib, ORIF. 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 She is currently out of work. Patient past medical history is unremarkable. Current impairments include pain, posture, ROM, strength, balance, swelling, activity tolerance and functional mobility. Functional limitations include decreased ability to walk, stand, negotiate stairs, work, jog, squat, and do most weight bearing activities. Patient is motivated with good rehab potential. Skilled PT will address impairments and functional limitations in order to achieve goals. Electronically signed by: Mukund Cornell, PT Please sign and return to therapist. Thank you for your referral.
== END 2023-04-13 07:27 | disposition home or self-care (01) ==
LOC: HO.PTCHIC 14:00
PROVIDERS: PCP Internal Medicine; Visit Provider Physician Assistant
DX: S82.831A Other fracture of upper and lower end of right fibula, initial encounter for closed fracture (principal)
CPT/HCPCS: 97110; 97112; 97161

== ENCOUNTER 2023-04-09 09:01 | Outpatient (REF) | payer OTHER, SELFPAY ==
--- NOTE | ~2023-04-09 | XR_ITS ---
EXAMINATION: XR ANKLE, RIGHT CLINICAL INFORMATION: Pain COMPARISON: Radiographs 02/18/2023 TECHNIQUE: Three views of the right ankle. FINDINGS: Stable postsurgical changes of ORIF of the ankle with chronic distal fibular fracture deformity and avulsed chronic medial malleolus fracture fragment. Ankle mortise is congruent. No new fracture or dislocation. No evidence of hardware fracture or complication. Small tibiotalar joint effusion. XR/XR ankle RT min 3V IMPRESSION: 1. Stable postsurgical changes of ORIF of the ankle with chronic distal fibular fracture deformity and avulsed chronic medial malleolus fracture fragment. 2. Small tibiotalar joint effusion.
== END 2023-04-09 09:02 | disposition home or self-care (01) ==
LOC: HO.HOSX 09:01
PROVIDERS: Visit Provider Physician Assistant
DX: S82.831A Other fracture of upper and lower end of right fibula, initial encounter for closed fracture (principal)
CPT/HCPCS: 73610

== ENCOUNTER 2023-12-31 12:40 | Outpatient (AMB) | payer OTHER, SELFPAY ==
[2023-12-31 13:05] VITALS: BP 162/90; PULSE 90; O2SAT 97; BMI 27.6
--- NOTE | 2023-12-31 13:05 | A.OFFPC_ITS ---
Vital Signs 12/31/23 13:05 Height 5 ft 1 in Weight 146 lb BMI 27.6 BP 162/90 H Blood Pressure Location Lt brachial Position Sitting Pulse 90 Pulse Source Pulse Oximeter Pulse Oximetry (%) 97 Oxygen Delivery Method Room Air Intake Visit Reasons: Physical Exam Intake Note: Patient is here today for a physical. Marketing Project Manager Required: No Allergies No Known Allergies [No Known Allergies*] Allergy (Verified 12/31/23 13:05) Medication List - Last Reconciled 12/31/23 by Nellie Woodson MD biotin 1 mg PO DAILY Tobacco use date assessed: 12/31/23 Dental Screening Dental Screen Date: 12/31/23 Did you have a dental visit in the last 12 months?: Yes Did you have a dental problem in the last 6 months where you did not have access to dental care?: No Was dental information given to patient?: Patient has dentist HPI Physical Exam HPI Details 57-year-old overweight female with a his tory of distal end of the right fibular fracture(ORIF right fibula December 2022) coming in for the 1st time. Review of the notes follows up with Nephrology in 2020 for labile hypertension has hematuria which has been evaluated by Urology. Patient underwent 24 HR blood pressure monitor showing well-controlled readings. Diagnosis of white coat hypertension passed out and fell 11/2022 was asleep had covid at that time, no other passing out. 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 1. Little interest or pleasure in doing things: not at all 2. Feeling down, depressed, or hopeless: not at all 3. Trouble falling or staying asleep, or sleeping too much: not at all 4. Feeling tired or having little energy: not at all 5. Poor appetite or overeating: not at all 6. Feeling bad about yourself - or that you are a failure or have let yourself or your family down: not at all 7. Trouble concentrating on things, such as reading the newspaper or watching television: not at all 8. Moving or speaking so slowly that other people could have noticed. Or the opposite - being so fidgety or restless that you have been moving around a lot more than usual: not at all 9. Thoughts that you would be better off or of hurting yourself in some way: not at all Total score: 0 Depression Screening Interpretation: Negative Depression Screening Done: Yes Source: Developed by Drs. Bossman Barrientos, Ilda Schmitt, Elvis Diaz and colleagues, with an educational migel from [employer]. Thrive Questionnaire Date Thrive assessed: 12/31/23 I am a: Patient What is your living situation today?: I have a steady place to live Within the past 12 months, did the food you bought not last and you didn't have the money to get more?: Never true Within the past 12 months, did you worry whether your food would run out before you got money to buy more?: Never true Do you have trouble paying for medicines?: No Do you have trouble getting transportation to medical appointments?: No Do you have trouble paying your heating and electricity bill?: No Do you have trouble taking care of your child, family member or friend?: No Do you have trouble with day-to-day activities such as bathing, preparing meals, shopping, managing finances, etc.?: No Are you currently unemployed and looking for a job?: No Are you interested in more education?: No Please select the resources that you would like help with: None THRIVE Score: 0 AUDIT C Alcohol Use Questionnaire (AUDIT-C) 1. How often do you have a drink containing alcohol?: Never 3. How often do you have six or more drinks on one occasion?: Never Total Score: 0 LÓPEZ-7 AMB Questionnaire LÓPEZ-7 Date LÓPEZ - 7 assessed: 12/31/23 Feeling nervous, anxious, or on edge: 0 = Not at all Not being able to stop or control worryin = Not at all Worrying too much about different things: 0 = Not at all Trouble relaxin = Not at all Being so restless that it is hard to sit still: 0 = Not at all Becoming easily annoyed or irritable: 0 = Not at all Feeling afraid as if something awful might happen: 0 = Not at all Total LÓPEZ-7 score (0-4 normal; 5-9 mild; 10-14 moderate; 15-21 severe): 0 Source: Developed by Drs. Bossman Barrientos, Ilda Schmitt, Elvis Diaz and colleagues, with an educational migel from [employer]. Review of Systems Const Denies poor appetite and Denies weakness Eyes Denies no additional complaints ENT Reports Normal hearing present, Denies dizziness, Denies nasal congestion, Denies tinnitus and Denies sore throat Card Denies chest pain, Denies syncope, Denies rapid heart rate and Denies dyspnea Resp Denies cough and Denies dyspnea GI Denies change in stool character, Reports constipation, Denies diarrhea, Denies nausea and Denies vomiting Denies urinary frequency, Denies difficulty voiding and Denies dysuria Neuro Reports Normal hearing present, Denies confusion, Denies dizziness, Denies syncope and Denies weakness Psych Denies confusion Physical exam (Primary Care) Vital Signs: Last Vital Signs Pulse 90 12/31/23 13:05 BP 162/90 H 12/31/23 13:05 Pulse Ox 97 12/31/23 13:05 Oxygen Delivery Method Room Air 12/31/23 13:05 BMI result Body Mass Index 27.6 Tobacco/Smoking Status: Tobacco use Status Tobacco use date assessed 12/31/23 12/31/23 13:12 Patient Tobacco Use Status Never used Tobacco 12/31/23 13:12 PHQ-9: PHQ-9 Score PHQ-9: Total score 0 12/31/23 13:12 Depression Screening Interpretation: Negative Thrive Assessment: Date of Thrive Assessment Date Thrive assessed 12/31/23 12/31/23 13:12 Const General: No confusion Orientation/consciousness: No confusion HENMT Head: Yes normocephalic Ears: external ears normal and TM's normal bilaterally Face and sinus: Yes normal facial exam Mouth: moist mucous membranes Throat: Yes tonsils normal Eyes Conjunctivae: conjunctivae normal Pupils: Equal, round and reactive pupils present and Pupil accommodation reflex normal Direct Ophthalmoscopy: normal light reflex Neck Neck: No lymphadenopathy Thyroid: Thyroid normal Chest Chest palpation & inspection: normal inspection of the chest Resp Effort & Inspection: normal respiratory effort and no audible wheezes Auscultation: clear to auscultation bilaterally, no crackles, no wheezes and lung sounds not diminished Cardio Rate: regular rate Rhythm: regular rhythm Peripheral pulses: radial pulses present and dorsalis pedis present GI Palpation (GI): no masses Auscultation: normal bowel sounds and normoactive bowel sounds Rectal Exam - Female: deferred Skin General skin exam: no rashes or lesions noted Rashes: no rashes Neuro General: No confusion Cranial nerves: Yes Equal, round and reactive pupils present and Yes Normal hearing present Cognition (Neuro): normal cognition Gait exam (Neuro): Normal gait present Motor exam (neuro): 5/5 motor strength present throughout Deep tendon reflexes (DTR's): Right brachioradialis reflex intensity grade: 2+, Left brachioradialis reflex intensity grade: 2+, Right patellar reflex intensity grade: 2+ and Left patellar reflex intensity grade: 2+ Extrem General: No edema Assessment and Plan Assessment & Plan (1) Annual physical exam: Code(s): Z00.00 - Encounter for general adult medical examination without abnormal findings (2) White coat syndrome with hypertension: Code(s): I10 - Essential (primary) hypertension Plan: Continuing to monitor blood pressure. Patient has had workup in 2020 under nephrology (3) Fracture of distal end of right fibula: Comment: right ankle fibula and syndesmosis ORIF 12/02/2022 [place] Code(s): S82.831A - Other fracture of upper and lower end of right fibula, initial encounter for closed fracture Plan: ORIF December 2022. (4) Overweight (BMI 25.0-29.9): Code(s): E66.3 - Overweight Plan: Diet and exercise (5) Cervical cancer screening: Code(s): Z12.4 - Encounter for screening for malignant neoplasm of cervix (6) Breast cancer screening by mammogram: Code(s): Z12.31 - Encounter for screening mammogram for malignant neoplasm of breast (7) Nova angioma: Code(s): D18.01 - Hemangioma of skin and subcutaneous tissue (8) Skin tag: Code(s): L91.8 - Other hypertrophic disorders of the skin Orders: Orders Complete Blood Count Auto Diff Today Z00.00 - Encounter for general adult medical examination without abnormal findings Free T4 (Free Thyroxine) Today Z00.00 - Encounter for general adult medical examination without abnormal findings Hemoglobin A1c Today Z00.00 - Encounter for general adult medical examination without abnormal findings Comprehensive Met. Panel Today Z00.00 - Encounter for general adult medical examination without abnormal findings Lipid Panel Today E78.00 - Pure hypercholesterolemia, unspecified, Z00.00 - Encounter for general adult medical examination without abnormal findings Thyroid Stimulating Hormone Today Z00.00 - Encounter for general adult medical examination without abnormal findings Vitamin B12 and Folate Today Z00.00 - Encounter for general adult medical examination without abnormal findings UA w Microscopic Today Z00.00 - Encounter for general adult medical examination without abnormal findings Vitamin D 25-OH Total Today Z00.00 - Encounter for general adult medical examination without abnormal findings MM tomosynthesis screening BI Today Z12.31 - Encounter for screening mammogram for malignant neoplasm of breast Referrals Nephrology Referral I10 - Essential (primary) hypertension CONTACT PERSON Referral Z12.4 - Encounter for screening for malignant neoplasm of cervix Dermatology Referral D18.01 - Hemangioma of skin and subcutaneous tissue, L91.8 - Other hypertrophic disorders of the skin Coding Level of Care Code Est Pt Prev Care 40-64y(52235) Diagnoses Annual physical exam Z00.00 White coat syndrome with hypertension I10 Fracture of distal end of right fibula S82.831A Overweight (BMI 25.0-29.9) E66.3 Cervical cancer screening Z12.4 Breast cancer screening by mammogram Z12.31 Nova angioma D18.01 Skin tag L91.8
== END 2023-12-31 13:47 | disposition home or self-care (01) ==
PROVIDERS: PCP Internal Medicine; Visit Provider Internal Medicine
DX: Z00.00 Encounter for general adult medical examination without abnormal findings (principal); I10 Essential (primary) hypertension; S82.831A Other fracture of upper and lower end of right fibula, initial encounter for closed fracture; E66.3 Overweight; Z12.4 Encounter for screening for malignant neoplasm of cervix; Z12.31 Encounter for screening mammogram for malignant neoplasm of breast; D18.01 Hemangioma of skin and subcutaneous tissue; L91.8 Other hypertrophic disorders of the skin
CPT/HCPCS: 99396

== ENCOUNTER 2024-01-08 07:09 | Outpatient (REF) | payer OTHER, SELFPAY ==
[2024-01-08 07:18] LABS: MANUAL DIFF FLAG NO
[2024-01-08 07:56] LABS: Basophils Percent Auto 0.2 % (0-2); Eosinophils Percent Auto 1.8 % (0-4); Hematocrit 42.2 % (37.0-47.0); Hemoglobin 14.1 g/dl (12.0-16.0); Imm Gran Pct Auto 0.2 % (0.0-0.4); Lymphocytes Percent Auto 33.8 % (20-40); Mean Corpuscular HGB Conc 33.4 g/dl (31.0-35.0); Mean Corpuscular Hemoglobin 28.7 pg (27.0-33.0); Mean Corpuscular Volume 85.9 fL (80.0-98.0); Mean Platelet Volume 10.1 fL (9.4-12.3); Monocytes Percent Auto 4.6 % (2-11); Neutrophils Percent Auto 59.4 % (45-73); Platelet Count 261 X10*3/uL (160-400); Red Blood Count 4.91 X10*6/uL (4.20-5.50); Red Cell Distribution Width 12.4 % (11.0-16.0); White Blood Count 4.5 X10*3/uL (4.8-10.8)
[2024-01-08 07:57] LABS: Eosinophils Absolute Auto 0.1 X10*3/uL (0.0-0.4); Imm Gran Abs Auto 0.01 X10*3/uL (0.00-0.03); Lymphocytes Absolute Auto 1.5 X10*3/uL (1.2-4.9); Monocytes Absolute Auto 0.2 X10*3/uL (0.1-1.2); Neutrophils Absolute Auto 2.7 x10*3/uL (2.0-8.3)
[2024-01-08 07:59] LABS: Appearance Urine Clear; Color Urine Yellow; Glucose Urine UA Negative (Negative); Leukocyte Esterase Urine Small (1+) (Negative); Nitrite Urine Negative (Negative); PH 6.5 (5.0-9.0); Specific Gravity - Urine 1.015 (1.005-1.025); UMIC TRIGGER UA YES; Urine Blood Large (3+) (Negative); Urine Ketones Negative (Negative); Urine Protein Negative (Neg-Trace)
[2024-01-08 08:11] LABS: Bacteria Urine None Seen (None Seen); Hyaline Casts Urine 0-2 /LPF (0-2); Squamous Epithelial Cell Urine 0-2 /HPF (0-2); WBC Urine 0-5 /HPF (0-5)
[2024-01-08 08:24] LABS: Estimated Average Glucose 88 mg/dL; Hemoglobin A1c % 4.7 % (<6.0)
[2024-01-08 08:34] LABS: Alanine Aminotransferase 15 U/L (0-31); Albumin Level 4.2 g/dL (3.5-5.0); Alkaline Phosphatase 81 U/L (39-117); Anion Gap 9 (12-20); Aspartate Amino Transferase 15 U/L (5-31); Bilirubin Total 0.5 mg/dL (0.0-1.0); Blood Urea Nitrogen 15 mg/dL (9-16); Calcium 9.6 mg/dL (8.4-10.2); Carbon Dioxide 29 mmol/L (22-29); Chloride 108 mmol/L (96-108); Cholesterol 192 mg/dL (<200); Estimated Glomerular Filt Rate > 60; Glucose Random 92 mg/dL (60-115); HDL Cholesterol 48 mg/dL (>40); LDL Cholesterol Calculated 128 mg/dL (<100); Potassium 4.3 mmol/L (3.3-5.1); Sodium 142 mmol/L (135-145); Total Protein 7.1 g/dL (6.5-8.0); Triglycerides 83 mg/dL (<150)
[2024-01-08 08:51] LABS: Free T4 (Free Thyroxine) 1.12 ng/dL (0.71-1.85); Thyroid Stimulating Hormone 0.97 uIU/mL (0.32-4.0); Vitamin D 25-OH Total 37.8 ng/mL (>30)
[2024-01-08 09:04] LABS: Folate 7.7 ng/mL (> or = 4.0); Vitamin B12 507 pg/mL (200-900)
== END 2024-01-08 07:10 | disposition home or self-care (01) ==
LOC: HO.LAB 07:09
PROVIDERS: PCP Internal Medicine; Visit Provider Internal Medicine
DX: Z00.00 Encounter for general adult medical examination without abnormal findings (principal); E78.00 Pure hypercholesterolemia, unspecified
CPT/HCPCS: 36415; 80053; 80061; 81001; 82306; 82607; 82746; 83036; 84439; 84443; 85025

== ENCOUNTER 2024-01-28 14:39 | Outpatient (AMB) | payer OTHER, SELFPAY ==
--- NOTE | 2024-01-28 14:41 | HO.NEPHOV ---
HPI HPI Comments History of Present Illness Details I had the delight of seeing Keisha who is a 57-year-old female with a history of microscopic hematuria. She has not known to have renal dysfunction or proteinuria. She had labile hypertension in the past and had undergone 24 HR blood pressure monitor at that time which showed well-controlled readings. She had microscopic hematuria and had been evaluated by Urology. She continues to have fluctuant blood pressures. She is working full-time and has personal stressors at home. She denies headache, double vision, chest pain, shortness of breath, pedal edema, paroxysmal nocturnal dyspnea, orthopnea or urinary symptoms. 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 Cognitive needs: No Hearing needs: No Vision needs: No Vital Signs 01/28/24 14:43 Height 5 ft 1 in Weight 149 lb BMI 28.2 BP 154/90 H Blood Pressure Location Lt brachial Position Sitting Physical Exam Vital Signs: Last Vital Signs BP 154/90 H 01/28/24 14:43 BMI result Body Mass Index 28.2 Const General: comfortable and no acute distress Orientation/consciousness: patient oriented x3 HEENT Head: Yes normocephalic Mouth: Normal oral and palatal mucosa present Eyes EOM: EOMs intact bilaterally Neck Neck: Yes supple Resp Auscultation: clear to auscultation bilaterally Cardio Jugular venous distension: no JVD Rate: regular rate GI Palpation (GI): Soft to palpation Auscultation: normal bowel sounds General: Yes no CVA tenderness Back/Spine/Pelvis Back: no CVA tenderness Skin General skin exam: no rashes or lesions noted Neuro General: patient oriented x3 and moves all extremities Extrem General: Yes no pedal edema Assessment & Plan Assessment & Plan (1) Labile blood pressure: Code(s): R09.89 - Other specified symptoms and signs involving the circulatory and respiratory systems (2) Microscopic hematuria: Code(s): R31.29 - Other microscopic hematuria Plan Keisha is known to have microscopic hematuria. She had seen Urology in the past and had workup. She is not known to have any renal dysfunction or proteinuria. She has history of labile blood pressure in the past and had undergone 24 hour ambulatory blood pressure monitor which did not show any significant high readings at that time to initiate medications. Currently she has been having more of blood pressure lability. I have ordered a 24 hour ambulatory blood pressure monitor for her. She continues to have personally stressors at home. She has no proteinuria and her renal functions are normal. Based on the data we will determine the choice or need for therapy for blood pressure management. She needs to lose some weight and continue to have lifestyle modifications. I did not make any medication changes today. All questions answered. Follow-up appointment given in a few weeks. Orders: Orders AMB 24 Hour Blood Pressure Monitor PLACEMENT 01/28/24 R09.89 - Other specified symptoms and signs involving the circulatory and respiratory systems Coding Level of Care Code Est Pt Level 4 (84372) Diagnoses Labile blood pressure R09.89 Microscopic hematuria R31.29 Results Reviewed Nephrology Results: Hgb 14.1 g/dl (12.0-16.0) 01/08/24 WBC 4.5 X10*3/uL (4.8-10.8) L 01/08/24 Plt Count 261 X10*3/uL (160-400) 01/08/24 Sodium 142 mmol/L (135-145) 01/08/24 Potassium 4.3 mmol/L (3.3-5.1) 01/08/24 Chloride 108 mmol/L (96-108) 01/08/24 Carbon Dioxide 29 mmol/L (22-29) 01/08/24 BUN 15 mg/dL (9-16) 01/08/24 Creatinine 0.71 mg/dL (0.5-1.4) 01/08/24 Calcium 9.6 mg/dL (8.4-10.2) 01/08/24 Urine Protein Negative mg/dL (Neg-Trace) 01/08/24
[2024-01-28 14:43] VITALS: BP 154/90; BMI 28.2
== END 2024-01-28 15:19 | disposition home or self-care (01) ==
PROVIDERS: PCP Internal Medicine; Referring Provider Internal Medicine; Visit Provider Internal Medicine Nephrology
DX: R09.89 Other specified symptoms and signs involving the circulatory and respiratory systems (principal); R31.29 Other microscopic hematuria
CPT/HCPCS: 99214

== ENCOUNTER → 2024-01-28 14:39 | Outpatient (BNVA) | payer OTHER, SELFPAY | PROVIDERS: PCP Internal Medicine; Referring Provider Internal Medicine; Visit Provider Internal Medicine Nephrology ==

== ENCOUNTER → 2024-02-15 10:44 | Outpatient (BNVA) | payer OTHER, SELFPAY | PROVIDERS: PCP Internal Medicine; Visit Provider Internal Medicine Nephrology ==

== ENCOUNTER → 2024-04-19 08:53 | Outpatient (BNVA) | payer OTHER, SELFPAY | PROVIDERS: PCP Internal Medicine; Visit Provider Internal Medicine Nephrology ==

== ENCOUNTER → 2024-04-20 08:49 | Outpatient (BNVA) | payer OTHER, SELFPAY | PROVIDERS: PCP Internal Medicine; Visit Provider Internal Medicine Nephrology ==

== ENCOUNTER 2024-05-26 14:38 | Outpatient (AMB) | payer OTHER, SELFPAY ==
--- NOTE | 2024-05-26 15:02 | HO.NEPHOV ---
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 She has not known to have renal dysfunction or proteinuria. She had labile hypertension in the past and had undergone 24 HR blood pressure monitor at that time which showed well-controlled readings. She had microscopic hematuria and had been evaluated by Urology. She continues to have fluctuant blood pressures. She is working full-time and has personal stressors at home. 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 Cognitive needs: No Hearing needs: No Vision needs: No Physical Exam Vital Signs: Last Vital Signs BP 146/90 H 05/26/24 15:03 BMI result Body Mass Index 27.5 Const General: comfortable and no acute distress Orientation/consciousness: patient oriented x3 HEENT Head: Yes normocephalic Mouth: Normal oral and palatal mucosa present Eyes EOM: EOMs intact bilaterally Neck Neck: Yes supple Resp Auscultation: clear to auscultation bilaterally Cardio Jugular venous distension: no JVD Rate: regular rate GI Palpation (GI): Soft to palpation Auscultation: normal bowel sounds General: Yes no CVA tenderness Back/Spine/Pelvis Back: no CVA tenderness Skin General skin exam: no rashes or lesions noted Neuro General: patient oriented x3 and moves all extremities Extrem General: Yes no pedal edema Results Reviewed Nephrology Results: Hgb 14.1 g/dl (12.0-16.0) 01/08/24 WBC 4.5 X10*3/uL (4.8-10.8) L 01/08/24 Plt Count 261 X10*3/uL (160-400) 01/08/24 Sodium 142 mmol/L (135-145) 01/08/24 Potassium 4.3 mmol/L (3.3-5.1) 01/08/24 Chloride 108 mmol/L (96-108) 01/08/24 Carbon Dioxide 29 mmol/L (22-29) 01/08/24 BUN 15 mg/dL (9-16) 01/08/24 Creatinine 0.71 mg/dL (0.5-1.4) 01/08/24 Calcium 9.6 mg/dL (8.4-10.2) 01/08/24 Urine Protein Negative mg/dL (Neg-Trace) 01/08/24 Assessment & Plan Assessment & Plan (1) Labile blood pressure: Code(s): R09.89 - Other specified symptoms and signs involving the circulatory and respiratory systems Category: Medical Plan Keisha is known to have microscopic hematuria. She had seen Urology in the past and had workup. She is not known to have any renal dysfunction or proteinuria. She has history of labile blood pressure in the past and had undergone 24 hour ambulatory blood pressure monitor which did not show any significant high readings at that time to initiate medications. Currently she has been having more of blood pressure lability. Her 24 hour ambulatory blood pressure monitor did not show readings suggestive of readings needing medications. She continues to have personally stressors at home. She has no proteinuria and her renal functions are normal. She needs to lose some weight and continue to have lifestyle modifications. I did not make any medication changes today. All questions answered. Follow-up appointment given in a year. Coding Level of Care Code Est Pt Level 4 (40105) Diagnoses Labile blood pressure R09.89
[2024-05-26 15:03] VITALS: BP 146/90; BMI 27.5
== END 2024-05-26 15:25 | disposition home or self-care (01) ==
PROVIDERS: PCP Internal Medicine; Visit Provider Internal Medicine Nephrology
DX: R09.89 Other specified symptoms and signs involving the circulatory and respiratory systems (principal)
CPT/HCPCS: 93790; 99214

== ENCOUNTER → 2024-05-26 14:38 | Outpatient (BNVA) | payer OTHER, SELFPAY | PROVIDERS: PCP Internal Medicine; Visit Provider Internal Medicine Nephrology ==

== ENCOUNTER 2025-05-25 13:14 | Outpatient (AMB) | payer OTHER, SELFPAY ==
--- OUTSIDE RECORDS SUMMARY | 2025-05-25 13:16 | XMS_ITS | Clinical Summary ---
Author Organization [facility] Address [address] [place] [address] Phone Care Team Providers Care Public Address Announcer Name Role Phone Nellie Woodson MD Primary Care Provider [phone] Allergies No known active allergies Medications No known medications Active Problems Problem Noted Date Diagnosed Date Labile hypertension due to being in a clinical e nvironment 07/11/2021 Blood in urine 06/04/2021 Hypertension 06/04/2021 Family History Medical History Relation Comments Diabetes Father Relation Status Comments Father Mother Alive Social History Tobacco Use Types Packs/Day Years Used Date Smoking Tobacco: Never Smokeless Tobacco: Never Alcohol Use Standard Drinks/Week Comments No 0 (1 standard drink = 0.6 oz pur e alcohol) Comments Unknown Sex and Gender Information Value Date Recorded Sex Assigned at Not on file Legal Sex Female 4:45 PM EST Gender Identity Not on file Sexual Orientation Not on file Last Filed Vital Signs Vital Sign Reading Time Taken Comments Blood Pressure 150/80 07/11/2021 3:57 PM EDT Pulse 72 02/03/2019 12:01 PM EDT Temperature - - Respiratory Rate - - Oxygen Saturation - - Inhaled Oxygen Concentration - - Weight 71 kg (156 lb 9.6 oz) 07/11/2021 3:57 PM EDT Height 154.9 cm (5' 1 ) 02/02/2020 12:00 PM EDT Body Mass Index 29.59 02/02/2020 12:00 PM EDT Plan of Treatment Health Maintenance Due Date Last Done Comments Breast Cancer Screening 1965 Pneumococcal Vaccine: 50+ Ye ars (1 of 2 - PCV) 01/01/1984 Colorectal Cancer Screening: Annual FOBT 2013 Colorectal Cancer Screening: Colonoscopy 2013 Colorectal Cancer Screening: Sigmoidoscopy 2013 Influenza Vaccine (#1) 2025 Hepatitis B Vaccine Aged Out No longe r eligible based on patient's age to complete this topic Insurance [place] [address] [place] [address] [place] [address] Care Teams Public Address Announcer Relationship Specialty Start Date End Date Nellie Woodson MD [facility] [place] [address] [place], [place] PCP - General 11/11/20
--- NOTE | 2025-05-25 13:44 | HO.NEPHOV_ITS ---
Vital Signs 05/25/25 13:45 Height 5 ft 1 in Weight 150 lb 6 oz BMI 28.4 BP 158/90 H Blood Pressure Location Lt brachial Position Sitting Intake Visit Reasons: 1 yr follow up-LVM Accompanied by: Self / Same As Patient Allergies No Known Allergies (No Known Allergies*) Allergy (Verified 05/25/25 13:44) HPI Comments Details: I had the delight of seeing Keisha who is a 59-year-old female with a history of microscopic hematuria. She has not known to have renal dysfunction or proteinuria. She had labile hypertension in the past and had undergone 24 HR blood pressure monitor at that time which showed well-controlled readings. She had microscopic hematuria and had been evaluated by Urology. She continues to have fluctuant blood pressures. She is working full-time and has personal stressors at home. 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 Cognitive needs: No Hearing needs: No Vision needs: No Review of Systems Const All systems reviewed & are unremarkable except as noted in HPI and below Physical Exam Vital Signs: Last Vital Signs BP 158/90 H 05/25/25 13:45 BMI result Body Mass Index 28.4 Const General: comfortable and no acute distress Orientation/consciousness: patient oriented x3 HEENT Head: Yes normocephalic Mouth: Normal oral and palatal mucosa present Eyes EOM: EOMs intact bilaterally Neck Neck: Yes supple Resp Auscultation: clear to auscultation bilaterally Cardio Jugular venous distension: no JVD Rate: regular rate GI Palpation (GI): Soft to palpation Auscultation: normal bowel sounds General: Yes no CVA tenderness Back/Spine/Pelvis Back: no CVA tenderness Skin General skin exam: no rashes or lesions noted Neuro General: patient oriented x3 and moves all extremities Extrem General: Yes no pedal edema Results Reviewed Nephrology Results: Hgb, (12.0-16.0) 14.1 g/dl 01/08/24 WBC, (4.8-10.8) 4.5 X10*3/uL L 01/08/24 Plt Count, (160-400) 261 X10*3/uL 01/08/24 Sodium, (135-145) 142 mmol/L 01/08/24 Potassium, (3.3-5.1) 4.3 mmol/L 01/08/24 Chloride, (96-108) 108 mmol/L 01/08/24 Carbon Dioxide, (22-29) 29 mmol/L 01/08/24 BUN, (9-16) 15 mg/dL 01/08/24 Creatinine, (0.5-1.4) 0.71 mg/dL 01/08/24 Calcium, (8.4-10.2) 9.6 mg/dL Δ 01/08/24 Urine Protein, (Neg-Trace) Negative mg/dL 01/08/24 Assessment & Plan Assessment & Plan (1) Microscopic hematuria: Code(s): R31.29 - Other microscopic hematuria Category: Medical (2) White coat syndrome with hypertension: Code(s): I10 - Essential (primary) hypertension Category: Medical Plan Keisha is known to have microscopic hematuria. She had seen Urology in the past and had workup. She is not known to have any renal dysfunction or proteinuria. She has history of labile blood pressure in the past and had undergone 24 hour ambulatory blood pressure monitor which did not show any significant high readings at that time to initiate medications. Currently she has been having more of blood pressure lability. Her 24 hour ambulatory blood pressure monitor did not show readings suggestive of readings needing medications. She continues to have personally stressors at home. She has no proteinuria and her renal functions are normal. She needs to lose some weight and continue to have lifestyle modifications. I did not make any medication changes today. All questions answered. Follow-up appointment given in a year. Orders: Orders Electrolytes Today R31.29 - Other microscopic hematuria Blood Urea Nitrogen Today R31.29 - Other microscopic hematuria Creatinine Today R31.29 - Other microscopic hematuria UA and rflx microscopic Today R31.29 - Other microscopic hematuria Protein Creatinine Ratio, Ur Today R31.29 - Other microscopic hematuria Coding Level of Care Code Est Pt Level 4 (07682) Diagnoses Microscopic hematuria R31.29 White coat syndrome with hypertension I10
[2025-05-25 13:45] VITALS: BP 158/90; BMI 28.4
== END 2025-05-25 13:56 | disposition home or self-care (01) ==
LOC: HO.HKA 13:14
PROVIDERS: PCP Internal Medicine; Visit Provider Internal Medicine Nephrology
DX: R31.29 Other microscopic hematuria (principal); I10 Essential (primary) hypertension
CPT/HCPCS: 99214

== ENCOUNTER 2025-05-25 13:14 | Outpatient (REF) | payer OTHER, SELFPAY ==
[2025-05-25 14:55] LABS: Anion Gap 12 (12-20); Blood Urea Nitrogen 20 mg/dL (9-16); Carbon Dioxide 25 mmol/L (22-29); Chloride 108 mmol/L (96-108); Estimated Glomerular Filt Rate > 60; Potassium 3.9 mmol/L (3.3-5.1); Sodium 141 mmol/L (135-145)
[2025-05-25 15:17] LABS: Appearance Urine Clear; Glucose Urine UA Negative (Negative); PH 6.0 (5.0-9.0); Specific Gravity - Urine <= 1.005 (1.005-1.025); UMIC TRIGGER UA YES
[2025-05-25 16:53] LABS: Total Protein Urine Random < 7 mg/dL (<12)
== END 2025-05-25 13:15 | disposition home or self-care (01) ==
LOC: HO.LAB 13:14
PROVIDERS: PCP Internal Medicine; Visit Provider Internal Medicine Nephrology
DX: R31.29 Other microscopic hematuria (principal); I10 Essential (primary) hypertension
CPT/HCPCS: 36415; 80051; 81001; 82565; 82570; 84156; 84520